=== PATIENT | male | born 1955 | race Caucasian/White ===

== ENCOUNTER 2018-03-03 07:00 | Inpatient (IN) | payer OTHER ==
[~2018-03-03] VITALS: Ht 170.2 cm; Wt 86.2 kg
[2018-03-03] MEDS ORDERED: PROTONIX40 M1 PO (08:48)
[2018-03-08] MEDS ORDERED: ULTRACET PO (11:24)
[2018-03-08] MEDS ORDERED: POLY119PG PO (11:24)
[2018-03-08] MEDS ORDERED: CARAFATE1 GM/10 ML PO (11:24)
== END 2018-03-09 16:00 | disposition home or self-care (01) | DRG 328 ==
LOC: O/R 03-08 06:00 → SURH 03-08 07:00 → SURG 03-08 11:52
PROVIDERS: Surgery
PROC: 0DV44ZZ Restriction of Esophagogastric Junction, Percutaneous Endoscopic Approach (ICD-10-PCS; 2018-03-08)
PROC: 0DS64ZZ Reposition Stomach, Percutaneous Endoscopic Approach (ICD-10-PCS; 2018-03-08)
PROC: 0DNW4ZZ Release Peritoneum, Percutaneous Endoscopic Approach (ICD-10-PCS; 2018-03-08)
PROC: 0WQF4ZZ Repair Abdominal Wall, Percutaneous Endoscopic Approach (ICD-10-PCS; 2018-03-08)
PROC: 0DJ08ZZ Inspection of Upper Intestinal Tract, Via Natural or Artificial Opening Endoscopic (ICD-10-PCS; 2018-03-08)
PROC: 0BUT4JZ Supplement Diaphragm with Synthetic Substitute, Percutaneous Endoscopic Approach (ICD-10-PCS; principal; 2018-03-08 07:00)
DX: K44.9 Diaphragmatic hernia without obstruction or gangrene (principal); K21.0 Gastro-esophageal reflux disease with esophagitis; K66.0 Peritoneal adhesions (postprocedural) (postinfection); K42.9 Umbilical hernia without obstruction or gangrene; K43.2 Incisional hernia without obstruction or gangrene